=== PATIENT | male | born 1975 | race African-American/Black ===

== ENCOUNTER 2024-01-03 22:01 | Emergency (ER) | payer MEDICAID ==
[~2024-01-03] VITALS: Ht 175.3 cm; Wt 78.0 kg
[2024-01-03] MEDS: KETOROLAC TROMETHAMINE 60 MG INJ IM ONE (22:58)
[2024-01-03] MEDS ORDERED: KETOROLAC TROMETHAMINE 60 MG INJ IM ONE (23:00)
[2024-01-04] MEDS ORDERED: IBUP-1955 PO (00:54)
[2024-01-04] MEDS ORDERED: HYDROCODONE/APAP 10-325 MG TABLET ONE (00:54)
[2024-01-04] MEDS ORDERED: HYDR-3980 PO (00:54)
[2024-01-04] MEDS: HYDROCODONE/APAP 10-325 MG TABLET PO ONE (00:58)
[2024-01-04 01:16] VITALS: BP 137/78; TEMP 98; O2SAT 99
== END 2024-01-04 01:11 | disposition home or self-care (01) ==
LOC: ER 22:37
DX: S93.402A Sprain of unspecified ligament of left ankle, initial encounter (principal); E11.9 Type 2 diabetes mellitus without complications; F12.10 Cannabis abuse, uncomplicated; Z86.69 Personal history of other diseases of the nervous system and sense organs; Z86.79 Personal history of other diseases of the circulatory system; Z87.19 Personal history of other diseases of the digestive system; Z87.39 Personal history of other diseases of the musculoskeletal system and connective tissue; Z86.59 Personal history of other mental and behavioral disorders; Z87.2 Personal history of diseases of the skin and subcutaneous tissue; X50.1XXA Overexertion from prolonged static or awkward postures, initial encounter; Y93.89 Activity, other specified; Y92.89 Other specified places as the place of occurrence of the external cause; Y99.8 Other external cause status
CPT/HCPCS: 99284; 73610; 73620; 96372; J1885; A4606; A4663

== ENCOUNTER 2024-04-07 14:07 | Emergency (ER) | payer MEDICAID ==
[~2024-04-07] VITALS: Ht 177.8 cm; Wt 80.7 kg
[~2024-04-07 14:07] MED LIST: HYDR-3980 PO; IBUP-1955 PO
[2024-04-07] MEDS ORDERED: ASPIRIN 81 MG TAB.CHEW ONE (14:33)
[2024-04-07] MEDS: ASPIRIN 81 MG TAB.CHEW PO ONE (14:42)
[2024-04-07 15:40] LABS: BASOPHILS % (AUTO) 0.6 % (0.0-2.0); EOSINOPHILS # (AUTO) 0.1 K/uL (0.0-0.7); EOSINOPHILS % (AUTO) 0.9 % (0.0-7.0); HEMATOCRIT 36.5 % (36.7-47.1); HEMOGLOBIN 12.3 g/dL (12.5-16.3); LYMPHOCYTES # (AUTO) 1.4 K/uL (0.8-4.8); LYMPHOCYTES % (AUTO) 22.5 % (20.5-51.5); MEAN CORPUSCULAR HEMOGLOBIN 29.7 uug (23.8-33.4); MEAN CORPUSCULAR HGB CONC 34 g/dL (32.5-36.3); MEAN CORPUSCULAR VOLUME 87.9 fL (73.0-96.2); MONOCYTES # (AUTO) 0.6 K/uL (0.1-1.30); MONOCYTES % (AUTO) 10.6 % (0.0-11.0); NEUTROPHILS % (AUTO) 65.4 % (38.5-71.5); PLATELET COUNT (AUTO) 230 K/uL (152-348); RED BLOOD CELL COUNT(AUTO) 4.15 MIL/uL (4.06-5.63); RED CELL DISTRIBUTION WIDTH 14.7 % (12.1-16.2); WHITE BLOOD COUNT (AUTO) 6.1 K/uL (3.6-10.2)
[2024-04-07 15:49] LABS: DIFFERENTIAL COMMENT 1
[2024-04-07 15:51] LABS: CALCIUM 8.8 mg/dL (8.5-10.1); CARBON DIOXIDE 30 mmol/L (21-32); CHLORIDE 102 mmol/L (98-107); CREATININE 1.4 mg/dL (0.6-1.3); GLUCOSE 96 mg/dL (74-106); POTASSIUM 3.8 mmol/L (3.5-5.1); SODIUM SERUM 140 mmol/L (136-145); UREA NITROGEN, BLOOD 21 mg/dL (7-18)
[2024-04-07 16:02] LABS: ALANINE AMINOTRANSFERASE 25 U/L (16-63); ALBUMIN 3.6 g/dL (3.4-5.0); ALKALINE PHOSPHATASE 74 U/L (50-136); ASPARTATE AMINOTRANSFERASE 21 U/L (15-37); BILIRUBIN,DIRECT 0.1 mg/dL (0.0-0.2); BILIRUBIN,TOTAL 0.4 mg/dL (0.2-1.0); NT-PRO BNP 53 pg/mL (0-125); TOTAL PROTEIN, SERUM 6.9 g/dL (6.4-8.2)
[2024-04-07 18:03] VITALS: BP 112/56; O2SAT 100
== END 2024-04-07 18:04 | disposition home or self-care (01) ==
LOC: ER 14:07
DX: R07.89 Other chest pain (principal); M79.18 Myalgia, other site
CPT/HCPCS: 36415; 71045; 84484; 85025; 85730; A4606; A4663